=== PATIENT | male | born 1975 | race Caucasian/White ===

== ENCOUNTER 2022-08-23 21:35 | Inpatient (IN) ==
[2022-08-24] MEDS ORDERED: Naloxone 0.4 MG/ML INJ IVP PRN (02:51)
[2022-08-24] MEDS ORDERED: *HR* Promethazine 25 MG/ML VIAL IM PRN (02:51)
[2022-08-24] MEDS ORDERED: Acetaminophen IV 1,000 MG/100 ML BAG IVPB ONE ×2 (03:17→10:50)
[2022-08-24] MEDS: 0.9 % Sodium Chloride 1,000 ML IVC SCH ×2 (04:04→16:52)
[2022-08-24] MEDS: Acyclovir 750 MG in D5% in Water 250 ML IVPB SCH ×2 (05:15→16:27)
[2022-08-24] MEDS: Cefepime HCl 2,000 MG in 0.9 % Sodium Chloride Mini Bag 100 ML IVPB SCH ×2 (05:15→16:32)
[2022-08-24 06:33] LABS: Bilirubin,Urine Negative (Negative); Blood,Urine Negative (Negative); Clarity,Urine Clear (Clear); Color,Urine Colorless (Yellow); Glucose,Urine (UA) Normal (Normal); Ketones,Urine Negative (Negative); Leukocyte Esterase,Urine Negative (Negative); Nitrite,Urine Negative (Negative); Protein,Urine Negative (Neg-Trace); Specific Gravity,Urine 1.024 (1.010-1.025); Urobilinogen,Urine Normal (Normal)
[2022-08-24 07:21] LABS: Adenovirus Not Detected (Not Detect); Coronavirus 229E Not Detected (Not Detect); Coronavirus HKU1 Not Detected (Not Detect); Coronavirus NL63 Not Detected (Not Detect); Coronavirus OC43 Not Detected (Not Detect); Human Metapneumovirus Not Detected (Not Detect); Human Rhinovirus/Enterovirus Not Detected (Not Detect); Influenza A Subtype 2009 H1 Not Detected (Not Detect); Influenza B Not Detected (Not Detect); Parainfluenza Virus 1 Not Detected (Not Detect); SARS-CoV-2 Not Detected (Not Detect)
[2022-08-24 07:22] LABS: Bordetella Pertussis Not Detected (Not Detect); Chlamydophila pneumoniae Not Detected (Not Detect); Mycoplasma pneumoniae Not Detected (Not Detect); Parainfluenza Virus 2 Not Detected (Not Detect); Parainfluenza Virus 3 Not Detected (Not Detect); Parainfluenza Virus 4 Not Detected (Not Detect); Respiratory Syncytial Virus Not Detected (Not Detect)
[2022-08-24] MEDS: hydrOXYzine pamoate 25 MG CAPSULE PO SCH ×3 (08:39→20:20)
[2022-08-24] MEDS: DESCOVY PO SCH (08:40)
[2022-08-24] MEDS: (Dolutegravir Sodium [Tivicay] 50 MG Tablet) PO SCH (08:40)
[2022-08-24] MEDS ORDERED: Fluconazole 200 MG/100 ML 200 MG/100 ML BAG IVPB SCH (09:00)
[2022-08-24 09:24] LABS: Basophils % 0.8 %; Eosinophils # 0.2 K/mcL (0.0-0.6); Eosinophils % 5.7 %; Hematocrit 31.2 % (37.5-50.1); Hemoglobin 10.7 g/dL (12.9-16.9); Immature Granulocytes % 0.3 % (0-4); Lymphocytes # 0.5 K/mcL (0.6-4.6); Lymphocytes % 11.9 %; Mean Corpuscular HGB Conc 34.3 g/dL (31.6-35.5); Mean Corpuscular Hemoglobin 31.2 pg (28.0-33.3); Mean Platelet Volume 9.1 fL (9.4-12.4); Monocytes # 0.4 K/mcL (0.0-1.3); Monocytes % 11.4 %; Neutrophils # 2.7 K/mcL (1.6-8.9); Platelet Count 218 K/mcL (140-400); Red Blood Count 3.43 M/mcL (4.19-5.50); Red Cell Distribution Width 16.2 % (11.5-14.5); Segmented Neutrophils % 69.9 %; White Blood Count 3.9 K/mcL (4.3-11.1)
[2022-08-24 09:31] LABS: INR 1.1; Prothrombin Time 12.1 Seconds (9.4-12.1)
[2022-08-24 09:33] LABS: Alanine Aminotransferase 6 Units/L (7-52); Albumin 3.3 g/dL (3.5-5.7); Albumin/Globulin Ratio 1.1 (1.1-2.2); Alkaline Phosphatase 45 Units/L (34-104); Aspartate Amino Transferase 7 Units/L (13-39); BUN/Creatinine Ratio 31 (6-26); Bilirubin,Total 0.4 mg/dL (0.3-1.0); Blood Urea Nitrogen 22 mg/dL (6-20); Calcium 8.6 mg/dL (8.6-10.3); Carbon Dioxide 24 mEq/L (23-29); Chloride 106 mEq/L (98-107); Glucose 99 mg/dL (70-105); Osmolality,Calculated 277 (280-300); Potassium 3.8 mEq/L (3.5-5.1); Sodium 132 mEq/L (136-145); Total Protein 6.3 g/dL (6.4-8.9)
[2022-08-24 10:33] LABS: Hepatitis B Surface Antigen Nonreactive (Nonreactive)
[2022-08-24 11:03] LABS: Hepatitis A Antibody IgM Nonreactive (Nonreactive); Hepatitis B Core IgM Nonreactive (Nonreactive); Hepatitis C Virus Antibody Nonreactive (Nonreactive)
[2022-08-24] MEDS: Vancomycin 1,250 MG/262.5 ML IV.SOLN IVPB SCH ×2 (11:32→22:34)
[2022-08-24] MEDS: Ondansetron 4 MG/2 ML VIAL IVP PRN (13:01)
[2022-08-24] MEDS ORDERED: *HR* HYDROmorphone (PF) 1 MG/ML SYRINGE IVP ONE (17:36)
[2022-08-24] MEDS: Sulfamethoxazole/Trimeth DS 1 EACH TABLET PO SCH (19:51)
[2022-08-24] MEDS ORDERED: Fluconazole 100 MG TABLET PO SCH (21:00)
[2022-08-25] MEDS: Acyclovir 750 MG in D5% in Water 250 ML IVPB SCH ×4 (00:04→23:12)
[2022-08-25] MEDS: Cefepime HCl 2,000 MG in 0.9 % Sodium Chloride Mini Bag 100 ML IVPB SCH ×2 (05:01→16:54)
[2022-08-25] MEDS: Ondansetron 4 MG/2 ML VIAL IVP PRN ×2 (05:14→14:17)
[2022-08-25] MEDS: hydrOXYzine pamoate 25 MG CAPSULE PO SCH ×3 (07:45→20:13)
[2022-08-25] MEDS: Sulfamethoxazole/Trimeth DS 1 EACH TABLET PO SCH (07:45)
[2022-08-25] MEDS: Fluconazole 100 MG TABLET PO SCH ×2 (07:45→20:13)
[2022-08-25] MEDS: DESCOVY PO SCH (07:52)
[2022-08-25] MEDS: (Dolutegravir Sodium [Tivicay] 50 MG Tablet) PO SCH (07:52)
[2022-08-25] MEDS: Acetaminophen 325 MG TABLET PO PRN (07:57)
[2022-08-25] MEDS ORDERED: Ondansetron 4 MG/2 ML VIAL IM ONE (11:06)
[2022-08-25] MEDS: Vancomycin 1,250 MG/262.5 ML IV.SOLN IVPB SCH ×2 (12:35→23:12)
[2022-08-25 22:19] LABS: Basophils % 0.7 %; Eosinophils # 0.4 K/mcL (0.0-0.6); Eosinophils % 14.5 %; Hematocrit 27.7 % (37.5-50.1); Hemoglobin 9.5 g/dL (12.9-16.9); Immature Granulocytes % 0.4 % (0-4); Lymphocytes # 0.4 K/mcL (0.6-4.6); Lymphocytes % 14.9 %; Mean Corpuscular HGB Conc 34.3 g/dL (31.6-35.5); Mean Corpuscular Hemoglobin 31.6 pg (28.0-33.3); Mean Platelet Volume 9.2 fL (9.4-12.4); Monocytes # 0.3 K/mcL (0.0-1.3); Neutrophils # 1.6 K/mcL (1.6-8.9); Platelet Count 162 K/mcL (140-400); Red Blood Count 3.01 M/mcL (4.19-5.50); Red Cell Distribution Width 16.4 % (11.5-14.5); Segmented Neutrophils % 57.5 %; White Blood Count 2.8 K/mcL (4.3-11.1)
[2022-08-25 22:40] LABS: Albumin 3.2 g/dL (3.5-5.7); Bilirubin,Total 0.3 mg/dL (0.3-1.0); Calcium 8.6 mg/dL (8.6-10.3); Globulin 3.1 g/dL (2.4-3.5); Magnesium 1.7 mg/dL (1.6-2.6); Potassium 3.5 mEq/L (3.5-5.1); Total Protein 6.3 g/dL (6.4-8.9)
[2022-08-26] MEDS: Cefepime HCl 2,000 MG in 0.9 % Sodium Chloride Mini Bag 100 ML IVPB SCH (05:11)
[2022-08-26] MEDS ORDERED: Prochlorperazine 10 MG/2 ML VIAL IVP PRN (09:07)
[2022-08-26] MEDS: Fluconazole 100 MG TABLET PO SCH ×2 (09:10→17:47)
[2022-08-26] MEDS: hydrOXYzine pamoate 25 MG CAPSULE PO SCH ×3 (09:11→22:50)
[2022-08-26] MEDS: Sulfamethoxazole/Trimeth DS 1 EACH TABLET PO SCH (09:11)
[2022-08-26] MEDS: (Dolutegravir Sodium [Tivicay] 50 MG Tablet) PO SCH ×2 (11:11→17:46)
[2022-08-26] MEDS: DESCOVY PO SCH ×2 (11:11→17:47)
[2022-08-26] MEDS: Acyclovir 750 MG in D5% in Water 250 ML IVPB SCH ×2 (11:35→23:00)
[2022-08-26] MEDS: Vancomycin 1,250 MG/262.5 ML IV.SOLN IVPB SCH ×2 (11:35→22:50)
[2022-08-26] MEDS ORDERED: Orphenadrine 60 MG/2 ML VIAL IVP PRN (17:18)
[2022-08-26 17:54] LABS: Basophils % 0.8 %; Eosinophils # 0.6 K/mcL (0.0-0.6); Eosinophils % 15.6 %; Hematocrit 30.9 % (37.5-50.1); Hemoglobin 10.4 g/dL (12.9-16.9); Immature Granulocytes % 0.3 % (0-4); Lymphocytes # 0.7 K/mcL (0.6-4.6); Lymphocytes % 18.7 %; Mean Corpuscular HGB Conc 33.7 g/dL (31.6-35.5); Mean Corpuscular Hemoglobin 31.2 pg (28.0-33.3); Mean Corpuscular Volume 92.8 fL (83.0-100.0); Mean Platelet Volume 9.7 fL (9.4-12.4); Monocytes # 0.4 K/mcL (0.0-1.3); Monocytes % 11.6 %; Platelet Count 185 K/mcL (140-400); Red Blood Count 3.33 M/mcL (4.19-5.50); Red Cell Distribution Width 16.6 % (11.5-14.5); White Blood Count 3.8 K/mcL (4.3-11.1)
[2022-08-26 18:13] LABS: Alanine Aminotransferase 91 Units/L (7-52); Albumin 3.5 g/dL (3.5-5.7); Albumin/Globulin Ratio 1.1 (1.1-2.2); Alkaline Phosphatase 121 Units/L (34-104); Aspartate Amino Transferase 62 Units/L (13-39); BUN/Creatinine Ratio 18 (6-26); Bilirubin,Total 0.5 mg/dL (0.3-1.0); Blood Urea Nitrogen 16 mg/dL (6-20); Calcium 8.8 mg/dL (8.6-10.3); Carbon Dioxide 29 mEq/L (23-29); Chloride 100 mEq/L (98-107); Globulin 3.1 g/dL (2.4-3.5); Glucose 91 mg/dL (70-105); Osmolality,Calculated 273 (280-300); Sodium 131 mEq/L (136-145); Total Protein 6.6 g/dL (6.4-8.9)
[2022-08-26 18:53] LABS: Hepatitis B Surface Antigen Nonreactive (Nonreactive)
[2022-08-26 19:22] LABS: Hepatitis C Virus Antibody Nonreactive (Nonreactive)
[2022-08-26 19:24] LABS: Hepatitis A Antibody IgM Nonreactive (Nonreactive)
[2022-08-26] MEDS ORDERED: Acyclovir 750 MG in D5% in Water 250 ML IVPB SCH (20:00)
[2022-08-27] MEDS: Acyclovir 750 MG in D5% in Water 250 ML IVPB SCH ×3 (05:47→23:17)
[2022-08-27 06:08] LABS: Hematocrit 32.5 % (37.5-50.1); Hemoglobin 10.8 g/dL (12.9-16.9); Mean Corpuscular HGB Conc 33.2 g/dL (31.6-35.5); Mean Corpuscular Hemoglobin 30.7 pg (28.0-33.3); Mean Corpuscular Volume 92.3 fL (83.0-100.0); Mean Platelet Volume 9.7 fL (9.4-12.4); Platelet Count 208 K/mcL (140-400); Red Blood Count 3.52 M/mcL (4.19-5.50); Red Cell Distribution Width 16.9 % (11.5-14.5); White Blood Count 3.4 K/mcL (4.3-11.1)
[2022-08-27 06:32] LABS: Alanine Aminotransferase 73 Units/L (7-52); Albumin 3.5 g/dL (3.5-5.7); Alkaline Phosphatase 125 Units/L (34-104); Aspartate Amino Transferase 37 Units/L (13-39); BUN/Creatinine Ratio 19 (6-26); Bilirubin,Total 0.3 mg/dL (0.3-1.0); Blood Urea Nitrogen 19 mg/dL (6-20); Calcium 8.9 mg/dL (8.6-10.3); Carbon Dioxide 26 mEq/L (23-29); Chloride 103 mEq/L (98-107); Globulin 3.4 g/dL (2.4-3.5); Glucose 123 mg/dL (70-105); Osmolality,Calculated 284 (280-300); Potassium 3.7 mEq/L (3.5-5.1); Sodium 135 mEq/L (136-145); Total Protein 6.9 g/dL (6.4-8.9)
[2022-08-27 06:40] LABS: Platelet Estimate Normal (Normal)
[2022-08-27 06:42] LABS: Basophils # 0.1 K/mcL (0.0-0.2); Eosinophils # 0.5 K/mcL (0.0-0.6); Lymphocytes # 0.3 K/mcL (0.6-4.6); Monocytes # 0.1 K/mcL (0.0-1.3); Neutrophils # 2.5 K/mcL (1.6-8.9)
[2022-08-27] MEDS: Sulfamethoxazole/Trimeth DS 1 EACH TABLET PO SCH (08:05)
[2022-08-27] MEDS: Fluconazole 100 MG TABLET PO SCH (08:05)
[2022-08-27] MEDS: hydrOXYzine pamoate 25 MG CAPSULE PO SCH ×3 (08:06→20:39)
[2022-08-27] MEDS: Prochlorperazine 10 MG/2 ML VIAL IVP PRN (08:23)
[2022-08-27] MEDS ORDERED: Vancomycin 1,500 MG/265 ML IV.SOLN IVPB SCH (11:00)
[2022-08-27 11:15] LABS: Glucose,CSF < 10 mg/dL (40-70); Total Protein,CSF 131 mg/dL (15-45)
[2022-08-27 11:37] LABS: RPR REACTIVE (Non Reactive)
[2022-08-27 11:38] LABS: Red Blood Cell,CSF < 2000 RBC/mcL
[2022-08-27 11:42] LABS: Basophils,CSF 0 %
[2022-08-27 11:43] LABS: Appearance,CSF Clear (Clear)
[2022-08-27] MEDS: Acetaminophen 325 MG TABLET PO PRN (16:02)
[2022-08-27] MEDS: (Dolutegravir Sodium [Tivicay] 50 MG Tablet) PO SCH (18:11)
[2022-08-27] MEDS: DESCOVY PO SCH (18:11)
[2022-08-28] MEDS: Acyclovir 750 MG in D5% in Water 250 ML IVPB SCH ×3 (06:31→21:57)
[2022-08-28] MEDS: Fluconazole 100 MG TABLET PO SCH (07:54)
[2022-08-28] MEDS: hydrOXYzine pamoate 25 MG CAPSULE PO SCH ×3 (07:54→21:43)
[2022-08-28] MEDS: Sulfamethoxazole/Trimeth DS 1 EACH TABLET PO SCH (07:54)
[2022-08-28] MEDS: Prochlorperazine 10 MG/2 ML VIAL IVP PRN ×2 (08:00→19:04)
[2022-08-28 11:24] LABS: HIV-1 Viral Load Interp DETECTED (Not Detected)
[2022-08-28] MEDS ORDERED: Metoclopramide 10 MG/2 ML VIAL IVP ONE (13:23)
[2022-08-28] MEDS: (Dolutegravir Sodium [Tivicay] 50 MG Tablet) PO SCH (16:51)
[2022-08-28] MEDS: DESCOVY PO SCH (16:51)
[2022-08-28] MEDS: Metoclopramide 10 MG/2 ML VIAL IVP PRN (21:55)
[2022-08-29] MEDS: Metoclopramide 10 MG/2 ML VIAL IVP PRN (03:35)
[2022-08-29 03:54] LABS: Basophils % 0.5 %; Eosinophils # 0.1 K/mcL (0.0-0.6); Eosinophils % 2.5 %; Hematocrit 31.9 % (37.5-50.1); Immature Granulocytes % 0.5 % (0-4); Lymphocytes # 0.9 K/mcL (0.6-4.6); Lymphocytes % 22.9 %; Mean Corpuscular HGB Conc 34.5 g/dL (31.6-35.5); Mean Corpuscular Hemoglobin 30.7 pg (28.0-33.3); Mean Corpuscular Volume 89.1 fL (83.0-100.0); Mean Platelet Volume 9.2 fL (9.4-12.4); Monocytes # 0.3 K/mcL (0.0-1.3); Monocytes % 7.8 %; Neutrophils # 2.6 K/mcL (1.6-8.9); Platelet Count 201 K/mcL (140-400); Red Blood Count 3.58 M/mcL (4.19-5.50); Red Cell Distribution Width 15.7 % (11.5-14.5); Segmented Neutrophils % 65.8 %
[2022-08-29 05:15] LABS: Platelet Estimate Normal (Normal); Reactive Lymphocytes Present (Not Present)
[2022-08-29 06:28] LABS: Alanine Aminotransferase 39 Units/L (7-52); Albumin 3.6 g/dL (3.5-5.7); Albumin/Globulin Ratio 0.9 (1.1-2.2); Alkaline Phosphatase 118 Units/L (34-104); Aspartate Amino Transferase 14 Units/L (13-39); BUN/Creatinine Ratio 25 (6-26); Bilirubin,Total 0.5 mg/dL (0.3-1.0); Blood Urea Nitrogen 18 mg/dL (6-20); Calcium 9.2 mg/dL (8.6-10.3); Carbon Dioxide 27 mEq/L (23-29); Chloride 98 mEq/L (98-107); Globulin 3.8 g/dL (2.4-3.5); Glucose 105 mg/dL (70-105); Osmolality,Calculated 276 (280-300); Potassium 3.9 mEq/L (3.5-5.1); Sodium 132 mEq/L (136-145); Total Protein 7.4 g/dL (6.4-8.9)
[2022-08-29] MEDS: Sulfamethoxazole/Trimeth DS 1 EACH TABLET PO SCH (07:58)
[2022-08-29] MEDS: hydrOXYzine pamoate 25 MG CAPSULE PO SCH ×3 (07:58→21:22)
[2022-08-29] MEDS: Fluconazole 100 MG TABLET PO SCH (07:59)
[2022-08-29] MEDS: Acyclovir 750 MG in D5% in Water 250 ML IVPB SCH ×2 (07:59→15:50)
[2022-08-29] MEDS ORDERED: Fluconazole 100 MG TABLET PO ONE (10:39)
[2022-08-29] MEDS ORDERED: WATER IVPB SCH ×2 (11:00→14:00)
[2022-08-29] MEDS ORDERED: Amphotericin B Lipid Complex 400 MG in D5% in Water 250 ML IVPB SCH (11:00)
[2022-08-29] MEDS ORDERED: D5 IVPB SCH ×2 (11:00→14:00)
[2022-08-29] MEDS ORDERED: polyethylene glycoL 3350 17 GM POWD.PACK PO ONE (11:12)
[2022-08-29] MEDS: Acetaminophen 325 MG TABLET PO PRN (12:31)
[2022-08-29] MEDS: (Dolutegravir Sodium [Tivicay] 50 MG Tablet) PO SCH (16:00)
[2022-08-29] MEDS: DESCOVY PO SCH (16:01)
[2022-08-30] MEDS: Acetaminophen 325 MG TABLET PO PRN (00:03)
[2022-08-30] MEDS: Acyclovir 750 MG in D5% in Water 250 ML IVPB SCH ×2 (00:13→09:26)
[2022-08-30 00:56] LABS: Bilirubin,Total 0.9 mg/dL (0.3-1.0); Calcium 9.6 mg/dL (8.6-10.3); Globulin 4.1 g/dL (2.4-3.5); Potassium 3.8 mEq/L (3.5-5.1); Total Protein 8.1 g/dL (6.4-8.9)
[2022-08-30 01:05] LABS: Basophils # 0.1 K/mcL (0.0-0.2); Basophils % 0.5 %; Eosinophils % 0.3 %; Hematocrit 35.7 % (37.5-50.1); Hemoglobin 11.9 g/dL (12.9-16.9); Immature Granulocytes % 0.8 % (0-4); Lymphocytes # 0.6 K/mcL (0.6-4.6); Lymphocytes % 5.4 %; Mean Corpuscular HGB Conc 33.3 g/dL (31.6-35.5); Mean Corpuscular Hemoglobin 30.8 pg (28.0-33.3); Mean Corpuscular Volume 92.5 fL (83.0-100.0); Monocytes # 0.4 K/mcL (0.0-1.3); Monocytes % 3.6 %; Platelet Count 227 K/mcL (140-400); Red Blood Count 3.86 M/mcL (4.19-5.50); Red Cell Distribution Width 16.1 % (11.5-14.5); Segmented Neutrophils % 89.4 %
[2022-08-30 01:13] LABS: Neutrophils # 9.5 K/mcL (1.6-8.9); White Blood Count 10.6 K/mcL (4.3-11.1)
[2022-08-30] MEDS ORDERED: Ringers Solution, Lactated 1,000 ML ONE (01:32)
[2022-08-30] MEDS ORDERED: Ringers Solution, Lactated 1,000 ML IVC SCH (01:45)
[2022-08-30] MEDS ORDERED: Ringers Solution, Lactated 500 ML IVC ONE (02:45)
[2022-08-30] MEDS: hydrOXYzine pamoate 25 MG CAPSULE PO SCH ×3 (08:00→19:37)
[2022-08-30] MEDS: Sulfamethoxazole/Trimeth DS 1 EACH TABLET PO SCH (08:01)
[2022-08-30] MEDS ORDERED: Fluconazole 100 MG TABLET PO SCH (09:00)
[2022-08-30] MEDS ORDERED: 0.9 % Sodium Chloride 1,000 ML ONE (10:38)
[2022-08-30] MEDS ORDERED: 0.9 % Sodium Chloride 1,000 ML IVC SCH ×2 (10:45→11:00)
[2022-08-30] MEDS: WATER IVP SCH ×2 (11:42→14:23)
[2022-08-30] MEDS: D5 IVP SCH ×2 (11:42→14:23)
[2022-08-30] MEDS: Acetaminophen 325 MG TABLET PO SCH (11:43)
[2022-08-30] MEDS: Sennosides/Docusate Sodium TABLET PO SCH ×2 (11:46→19:37)
[2022-08-30] MEDS: Amphotericin B Lipid Complex 400 MG in D5% in Water 250 ML IVPB SCH (12:17)
[2022-08-30] MEDS: DESCOVY PO SCH (16:56)
[2022-08-30] MEDS: (Dolutegravir Sodium [Tivicay] 50 MG Tablet) PO SCH (16:57)
[2022-08-31] MEDS: 0.9 % Sodium Chloride 1,000 ML IVC SCH ×2 (00:01→10:11)
[2022-08-31 00:45] LABS: Albumin 3.4 g/dL (3.5-5.7); Albumin/Globulin Ratio 0.9 (1.1-2.2); Bilirubin,Total 0.4 mg/dL (0.3-1.0); Calcium 8.7 mg/dL (8.6-10.3); Globulin 3.6 g/dL (2.4-3.5); Potassium 3.6 mEq/L (3.5-5.1)
[2022-08-31] MEDS ORDERED: FLUCYTOSINE 500 MG CAPSULE PO SCH (09:00)
[2022-08-31] MEDS: hydrOXYzine pamoate 25 MG CAPSULE PO SCH ×4 (10:10→21:08)
[2022-08-31] MEDS: Sennosides/Docusate Sodium TABLET PO SCH ×3 (10:10→21:08)
[2022-08-31] MEDS: Sulfamethoxazole/Trimeth SS 1 TAB PO SCH (10:10)
[2022-08-31] MEDS: WATER IVP SCH ×2 (12:36→16:21)
[2022-08-31] MEDS: D5 IVP SCH ×2 (12:36→16:21)
[2022-08-31] MEDS: Acetaminophen 325 MG TABLET PO SCH (12:36)
[2022-08-31] MEDS: Amphotericin B Lipid Complex 400 MG in D5% in Water 250 ML IVPB SCH (12:37)
[2022-08-31] MEDS: Metoclopramide 10 MG/2 ML VIAL IVP PRN (15:20)
[2022-08-31] MEDS: (Dolutegravir Sodium [Tivicay] 50 MG Tablet) PO SCH (16:25)
[2022-08-31] MEDS: DESCOVY PO SCH (16:25)
[2022-08-31 18:08] LABS: Herpes Simplex 1 Subtype PCR NOT DETECTED; Herpes Simplex Source CSF
[2022-08-31] MEDS: Prochlorperazine 10 MG/2 ML VIAL IVP PRN (21:01)
[2022-09-01 05:09] LABS: Alanine Aminotransferase 31 Units/L (7-52); Albumin 3.4 g/dL (3.5-5.7); Albumin/Globulin Ratio 0.9 (1.1-2.2); Alkaline Phosphatase 111 Units/L (34-104); Aspartate Amino Transferase 13 Units/L (13-39); BUN/Creatinine Ratio 25 (6-26); Bilirubin,Total 0.4 mg/dL (0.3-1.0); Blood Urea Nitrogen 24 mg/dL (6-20); Calcium 9.2 mg/dL (8.6-10.3); Carbon Dioxide 24 mEq/L (23-29); Chloride 107 mEq/L (98-107); Globulin 3.6 g/dL (2.4-3.5); Glucose 104 mg/dL (70-105); Osmolality,Calculated 288 (280-300); Potassium 3.8 mEq/L (3.5-5.1); Sodium 137 mEq/L (136-145)
[2022-09-01] MEDS: Sennosides/Docusate Sodium TABLET PO SCH ×2 (09:02→23:28)
[2022-09-01] MEDS: hydrOXYzine pamoate 25 MG CAPSULE PO SCH ×3 (09:47→23:27)
[2022-09-01] MEDS: Sulfamethoxazole/Trimeth SS 1 TAB PO SCH (09:47)
[2022-09-01 11:15] LABS: Herpes Simplex 2 Subtype PCR NOT DETECTED
[2022-09-01] MEDS: Metoclopramide 10 MG/2 ML VIAL IVP PRN ×2 (11:36→23:33)
[2022-09-01] MEDS: Acetaminophen 325 MG TABLET PO SCH (11:36)
[2022-09-01] MEDS: D5 IVP SCH ×2 (11:37→14:46)
[2022-09-01] MEDS: WATER IVP SCH ×2 (11:37→14:46)
[2022-09-01] MEDS: Amphotericin B Lipid Complex 400 MG in D5% in Water 250 ML IVPB SCH (11:37)
[2022-09-01] MEDS: Prochlorperazine 10 MG/2 ML VIAL IVP PRN (14:46)
[2022-09-01] MEDS: DESCOVY PO SCH (15:56)
[2022-09-01] MEDS: (Dolutegravir Sodium [Tivicay] 50 MG Tablet) PO SCH (15:56)
[2022-09-02 07:10] LABS: Albumin 3.3 g/dL (3.5-5.7); Bilirubin,Total 0.3 mg/dL (0.3-1.0); Calcium 9.2 mg/dL (8.6-10.3); Globulin 3.3 g/dL (2.4-3.5); Potassium 3.5 mEq/L (3.5-5.1); Total Protein 6.6 g/dL (6.4-8.9)
[2022-09-02] MEDS: hydrOXYzine pamoate 25 MG CAPSULE PO SCH ×3 (08:54→21:01)
[2022-09-02] MEDS: Sulfamethoxazole/Trimeth SS 1 TAB PO SCH (08:54)
[2022-09-02] MEDS: Metoclopramide 10 MG/2 ML VIAL IVP PRN ×2 (08:58→17:14)
[2022-09-02 09:06] VITALS: TEMP 97.6
[2022-09-02] MEDS: Sennosides/Docusate Sodium TABLET PO SCH ×3 (12:01→21:56)
[2022-09-02] MEDS: Acetaminophen 325 MG TABLET PO SCH (12:02)
[2022-09-02 12:07] VITALS: BP 125/94; PULSE 59; O2SAT 95
[2022-09-02] MEDS: Amphotericin B Lipid Complex 400 MG in D5% in Water 250 ML IVPB SCH (13:22)
[2022-09-02] MEDS: WATER IVP SCH ×2 (13:23→15:47)
[2022-09-02] MEDS: D5 IVP SCH ×2 (13:23→15:47)
[2022-09-02] MEDS ORDERED: 0.9 % Sodium Chloride 1,000 ML IVC SCH (16:00)
[2022-09-02] MEDS: (Dolutegravir Sodium [Tivicay] 50 MG Tablet) PO SCH (17:59)
[2022-09-02] MEDS: DESCOVY PO SCH (17:59)
[2022-09-02] MEDS ORDERED: FLUCYTOSINE 500 MG CAPSULE PO SCH (21:00)
[2022-09-02] MEDS: Prochlorperazine 10 MG/2 ML VIAL IVP PRN (21:53)
[2022-09-03 09:01] LABS: Toxoplasma gondii Source CSF
[2022-09-10 07:23] LABS: Borrelia burgdorferi Abs CSF 1.52 LIV (<=0.99)
== END 2022-09-02 23:59 | disposition other institution (70) | DRG 977 ==
LOC: 2NENU → SUATTDRO 08-24 02:14
PROVIDERS: ADMIT Student in an Organized Health Care Education/Training Program; ATTEND Internal Medicine